=== PATIENT | female | born 1955 | race Caucasian/White ===

== ENCOUNTER 2018-03-17 13:34 | Emergency (ER) | payer OTHER ==
[~2018-03-17] VITALS: Ht 160 cm; Wt 59.0 kg
[2018-03-17] MEDS ORDERED: Acetaminophen 500mg (ES) tab ORAL ONE (14:00)
[2018-03-17] MEDS ORDERED: Methocarbamol 500mg tab ORAL ONE (14:00)
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
[2018-03-17 14:47] VITALS: BP 121/84
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
[2018-03-17] MEDS ORDERED: LIDOCAINE700 M1 TP (17:06)
[2018-03-17] MEDS ORDERED: TYLENOL EXTRA500 MG ORAL (17:06)
[2018-03-17 17:12] VITALS: BP 119/74
== END 2018-03-17 17:12 | disposition home or self-care (01) ==
LOC: EMR 13:53
DX: S09.90XA Unspecified injury of head, initial encounter (principal); M25.512 Pain in left shoulder; M54.2 Cervicalgia; V43.52XA Car driver injured in collision with other type car in traffic accident, initial encounter; Y92.410 Unspecified street and highway as the place of occurrence of the external cause; Q28.3 Other malformations of cerebral vessels
CPT/HCPCS: 70450; 70551; 99284